=== PATIENT | female | born 1945 ===

== ENCOUNTER 2020-10-21 09:26 | Outpatient (CLI) | payer OTHER | END 2020-10-21 09:53 | disposition home or self-care (01) | LOC: SONOGRAMA 09:26 | PROVIDERS: ATTEND Pathology Anatomic Pathology & Clinical Pathology | DX: D34 Benign neoplasm of thyroid gland (principal); E04.1 Nontoxic single thyroid nodule; E04.8 Other specified nontoxic goiter ==

== ENCOUNTER 2023-10-22 09:56 | Outpatient (CLI) | payer OTHER | END 2023-10-22 10:03 | disposition home or self-care (01) | LOC: SONOGRAMA 09:56 | DX: E04.1 Nontoxic single thyroid nodule (principal) ==